=== PATIENT | female | born 1950 | race Caucasian/White ===

== ENCOUNTER 2020-06-24 13:05 | Outpatient (CLI) | payer MEDICARE, SELFPAY ==
--- NOTE | ~2020-06-24 | MM_ITS ---
EXAMINATION: MM diagnostic elle BI w gregorio HISTORY: History of left breast cancer. Multiple previous benign biopsies on the left breast, last bi opsy in May 2019. TECHNIQUE: Additional 3-D tomosynthesis images of the breasts were performed and synthetic 2-D images were generated. CAD analysis was submitted and interpreted. COMPARISON: Comparison to multiple prior studies sequentially, with oldest reviewed study dated 04/2017. BREAST PARENCHYMAL COMPOSITION: Breast composed of scattered areas of fibroglandular density. FINDINGS: The right breast is stable without evidence for malignancy. There is a complex irregular sh aped left breast mass in the upper outer quadrant with pleomorphic calcifications and spiculated mala ins. This mass contains multiple tissue markers from previous benign biopsies. No significant interva l change from prior study allowing for technique. IMPRESSION: 1. Stable bilateral mammogram. No significant change to complex left breast mass which contains tissu e markers from multiple previous benign biopsies. 2. Routine yearly screening mammogram and regular clinical breast examination are recommended. Altern atively, consider correlation with MRI. BI-RADS Category 2: Benign finding(s). Reviewed, dictated and finalized at location A. IMPRESSION: 1. Stable bilateral mammogram. No significant change to complex left breast mas s which contains tissue markers from multiple previous benign biopsies. 2. Routine yearly screening mammogram and regular clinical breast examination a re recommended. Alternatively, consider correlation with MRI. BI-RADS Category 2: Benign finding(s).
== END 2020-06-24 13:06 | disposition home or self-care (01) ==
LOC: ANHIMG 13:12
PROVIDERS: PCP Internal Medicine Geriatric Medicine; Visit Provider Internal Medicine Geriatric Medicine
DX: Z85.3 Personal history of malignant neoplasm of breast (principal)
CPT/HCPCS: 77062; 77066; G0279